=== PATIENT | male | born 1985 | race African-American/Black ===

== ENCOUNTER 2024-06-21 01:45 | Emergency (ER) | payer OTHER ==
[2024-06-21] MEDS ORDERED: KETOROLAC 30 MG/ML INJ ONE (02:13)
[2024-06-21] MEDS ORDERED: methocarbamoL 500 MG TAB ONE (02:13)
--- NOTE | 2024-06-21 02:33 | ER ---
Nurse's Notes [facility] Name: Kavya Heard Age: 38 yrs Sex: Male : 1985 Arrival Date: 06/21/2024 Time: 01:45 Bed 2 Private MD: Diagnosis: Sprain of ankle Presentation: 06/21 02:03 Chief complaint: Patient states: patient was at work when incident happened. 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 when landing in the rocks, he twisted his L ankle and foot. c/o L foot pain. Coronavirus screen: At this time, the client does not indicate any symptoms associated with coronavirus-19. Ebola Screen: No symptoms or risks identified at this time. Initial Sepsis Screen: Does the patient meet any 2 criteria? No. Patient's initial sepsis screen is negative. Does the patient have a suspected source of infection? No. Patient's initial sepsis screen is negative. Risk Assessment: Do you want to hurt yourself or someone else? Patient reports no desire to harm self or others. Onset of symptoms was June 21, 2024. 02:03 Method Of Arrival: Ambulatory al5 02:03 Acuity: ALFA 4 al5 Triage Assessment: 02:06 General: Appears in no apparent distress. Behavior is calm, cooperative. Pain: al5 Complains of pain in left foot Pain currently is 7 out of 10 on a pain scale. EENT: No signs and/or symptoms were reported regarding the EENT system. Neuro: Level of Consciousness is awake, alert, obeys commands, Oriented to person, place, time, situation. Cardiovascular: Capillary refill < 3 seconds Patient's skin is warm and dry. Respiratory: Airway is patent Respiratory effort is even, unlabored, Respiratory pattern is regular, symmetrical. GI: No signs and/or symptoms were reported involving the gastrointestinal system. : No signs and/or symptoms were reported regarding the genitourinary system. Derm: Skin is intact, Skin is pink, warm \T\ dry. normal. Musculoskeletal: Reports pain in left foot. Injury Description: slipped and twisted foot and ankle. Historical: - Allergies: 02:05 No Known Allergies; al5 - PMHx: 02:05 Hypertensive disorder; al5 - PSHx: 02:05 None; al5 - Immunization history:: Adult Immunizations up to date. - Infectious Disease History:: Denies. - Social history:: Smoking status: Patient denies any tobacco usage or history of. Screenin:07 [facility] ED Fall Risk Assessment (Adult) History of falling in the last 3 months, al5 including since admission Yes- single mechanical fall (1 pt) Confusion or Disorientation No (0 pts) Intoxicated or Sedated No (0 pts) Impaired Gait No (0 pts) Mobility Assist Device Used No (0 pt) Altered Elimination No (0 pt) Score/Fall Risk Level 0 - 2 = Low Risk Oriented to surroundings, Maintained a safe environment, Hourly rounding (assess needs \T\ fall precautionary measures) done. Abuse screen: Denies threats or abuse. Denies injuries from another. Nutritional screening: No deficits noted. Tuberculosis screening: No symptoms or risk factors identified. Assessment: 02:07 Reassessment: see triage assessment. al5 Vital Signs: 02:00 BP 147 / 89; Pulse 72; Resp 16; Pulse Ox 100% on R/A; al5 02:03 BP 142 / 93; Pulse 75; Resp 18; Temp 98.9; Pulse Ox 100% ; Weight 120.2 kg; Height 6 al5 ft. 0 in. ; Pain 7/10; 02:15 BP 155 / 99; Pulse 75; Resp 16; Pulse Ox 100% on R/A; al5 02:30 BP 119 / 86; Pulse 73; Resp 16; Pulse Ox 100% on R/A; al5 02:03 Body Mass Index 35.94 (120.20 kg, 182.88 cm) al5 02:03 Pain Scale: Adult al5 ED Course: 01:49 Patient arrived in ED. ec2 01:50 Shawn Garcia MD is Attending Physician. ec2 01:54 Rachel White RN is Primary Nurse. al5 02:05 Triage completed. al5 02:05 Arm band placed on right wrist. Patient placed in the treatment room. al5 02:08 Patient has correct armband on for positive identification. Bed in low position. Call al5 light in reach. Side rails up X 1. Provided Education on: plan of care.. 02:22 Foot Left 3 View XRAY In Process Unspecified. EDMS 02:22 Ankle Left 3 View XRAY In Process Unspecified. EDMS 02:51 No provider procedures requiring assistance completed. Patient did not have IV access al5 during this emergency room visit. Administered Medications: 02:21 Drug: Ketorolac IM 30 mg IM once Route: IM; Site: right deltoid; al5 02:39 Follow up: Response: No adverse reaction; Pain is decreased al5 02:21 Drug: Methocarbamol PO 500 mg PO once Route: PO; al5 02:39 Follow up: Response: No adverse reaction; Pain is decreased al5 Medication: 02:07 VIS not applicable for this client. al5 Outcome: 02:33 Discharge ordered by . ec2 02:51 Discharged to home with crutches, with friend, al5 02:51 Condition: good 02:51 Discharge instructions given to patient, Instructed on discharge instructions, follow up and referral plans. medication usage, Demonstrated understanding of instructions, follow-up care, medications, Prescriptions given X 1, 02:51 Patient left the ED. al5 Signatures: Dispatcher [employer] Shawn Nieves MD MD ec2 Rachel White RN RN al5
--- NOTE | 2024-06-21 02:33 | EDPHYS ---
Physician Documentation [facility] Name: Kavya Heard Age: 38 yrs Sex: Male : 1985 Arrival Date: 06/21/2024 Time: 01:45 Bed 2 Private MD: ED Physician Shawn Garcia HPI: 06/21 02:03 This 38 yrs old Male presents to ER via Unassigned with complaints of Foot Injury. ec2 02:03 Patient arrives today for evaluation of a left foot and ankle injury. States that he ec2 twisted his ankle and foot and is now having pain and swelling at the area. No other injuries, no other concerns. Historical: - Allergies: 02:05 No Known Allergies; al5 - PMHx: 02:05 Hypertensive disorder; al5 - PSHx: 02:05 None; al5 - Immunization history:: Adult Immunizations up to date. - Infectious Disease History:: Denies. - Social history:: Smoking status: Patient denies any tobacco usage or history of. ROS: 02:03 Constitutional: as per hpi ec2 Exam: 02:03 Constitutional: GEN: NAD Head: atraumatic Eyes: EOMI Ears: External ears are ec2 normal. CV: regular rate LUNGS: no respiratory distress ABD: non-distended SKIN: no evidence of rashes MSK: Swelling and TTP to the dorsum of the left foot along with swelling and tenderness to the ankle. Vital Signs: 02:00 BP 147 / 89; Pulse 72; Resp 16; Pulse Ox 100% on R/A; al5 02:03 BP 142 / 93; Pulse 75; Resp 18; Temp 98.9; Pulse Ox 100% ; Weight 120.2 kg; Height 6 al5 ft. 0 in. ; Pain 7/10; 02:15 BP 155 / 99; Pulse 75; Resp 16; Pulse Ox 100% on R/A; al5 02:30 BP 119 / 86; Pulse 73; Resp 16; Pulse Ox 100% on R/A; al5 02:03 Body Mass Index 35.94 (120.20 kg, 182.88 cm) al5 02:03 Pain Scale: Adult al5 MDM: 01:59 Patient medically screened. ec2 02:03 Data reviewed: vital signs. ED course: Patient arrives today for left ankle and foot ec2 pain. Examination remarkable for MSK findings as above. Will obtain radiographs of the left ankle and foot and give the patient Toradol and methocarbamol. Evaluating for bony fracture, bony contusion, ankle sprain.. 02:32 ED course: Ankle and foot x-ray independently reviewed and interpreted by me, show no ec2 bony fracture. Presentation consistent with sprain. Will discharge home. Return precautions given.. 06/21 02:03 Order name: Foot Left 3 View XRAY ec2 06/21 02:03 Order name: Ankle Left 3 View XRAY ec2 06/21 02:35 Order name: Montrell Wrap; Complete Time: 02:49 ec2 Administered Medications: 02:21 Drug: Ketorolac IM 30 mg IM once Route: IM; Site: right deltoid; al5 02:39 Follow up: Response: No adverse reaction; Pain is decreased al5 02:21 Drug: Methocarbamol PO 500 mg PO once Route: PO; al5 02:39 Follow up: Response: No adverse reaction; Pain is decreased al5 Disposition Summary: 06/21/24 02:33 Discharge Ordered Notes: Location: Home ec2 Condition: Stable ec2 Diagnosis - Sprain of ankle ec2 Followup: ec2 - With: Private Physician - When: - Reason: Re-evaluation by your physician Discharge Instructions: - Discharge Summary Sheet ec2 - Ankle Sprain, [id number] ec2 Forms: - Medication Reconciliation Form ec2 - Antibiotic Education ec2 - Prescription Opioid Use ec2 - Patient Portal Instructions ec2 - Leadership Thank You Letter ec2 - Work release form al5 Prescriptions: - methocarbamol 500 mg Oral tablet - take 2 tablets ORAL route 4 times per day; 20 tablet; Refills: 0, Product ec2 Selection Permitted Signatures: Dispatcher [employer] Shawn Nieves MD MD ec2 Rachel White RN RN al5
[2024-06-21 02:56] VITALS: O2SAT 100
[2024-06-21 02:58] VITALS: TEMP 98.9
[2024-06-21 03:00] VITALS: BP 119/86
--- NOTE | 2024-06-21 13:40 | RAD REPORT ---
EXAM DESCRIPTION: RAD - Ankle Left 3 View - 06/21/2024 2:20 am CLINICAL HISTORY: Injury COMPARISON: None TECHNIQUE: 3 views of the left ankle and foot FINDINGS: BONES: No acute fracture or malalignment. No suspicious sclerotic or lytic lesion. SOFT TISSUE: Unremarkable. OTHER: None. IMPRESSION: No acute bony abnormality. Electronically signed by: Atiya Carty MD 06/21/2024 02:28 AM CDT RP Due to temporary technical issues with the PACS/Fluency reporting system, reports are being signed by the in house radiologists without review as a courtesy to insure prompt reporting. The interpreting radiologist is fully responsible for the content of the report.
--- NOTE | 2024-06-21 13:48 | RAD REPORT ---
EXAM DESCRIPTION: RAD - Foot Left 3 View - 06/21/2024 2:20 am CLINICAL HISTORY: Injury COMPARISON: None 3 views of the left ankle and foot FINDINGS BONES: No acute fracture or malalignment. No suspicious sclerotic or lytic lesion. SOFT TISSUE: Unremarkable. OTHER: None. IMPRESSION: No acute bony abnormality. Electronically signed by: Atiya Carty MD 06/21/2024 02:28 AM CDT RP Due to temporary technical issues with the PACS/Fluency reporting system, reports are being signed by the in house radiologists without review as a courtesy to insure prompt reporting. The interpreting radiologist is fully responsible for the content of the report.
== END 2024-06-21 02:51 | disposition home or self-care (01) ==
LOC: ER 01:45
DX: S93.402A Sprain of unspecified ligament of left ankle, initial encounter (principal); I10 Essential (primary) hypertension
CPT/HCPCS: 96372; 99284